=== PATIENT | male | born 1955 | race Caucasian/White ===

== ENCOUNTER → 2024-08-28 16:27 | Outpatient (REF) | payer MEDICARE, OTHER, SELFPAY | LOC: RCS 16:27 | PROVIDERS: ATTENDING PHYSICIAN Nurse Practitioner; FAMILY PHYSICIAN Family Medicine | DX: R00.1 Bradycardia, unspecified (principal) | CPT/HCPCS: 93225; 93226 ==

== ENCOUNTER → 2024-08-30 15:07 | Outpatient (REF) | payer MEDICARE, OTHER, SELFPAY | LOC: RCS 15:07 | PROVIDERS: ATTENDING PHYSICIAN Nurse Practitioner; FAMILY PHYSICIAN Family Medicine | DX: R00.1 Bradycardia, unspecified (principal) | CPT/HCPCS: 93306 ==

== ENCOUNTER 2024-08-31 10:06 | Day surgery (SDC) | payer MEDICARE, OTHER, SELFPAY ==
[2024-08-31] VITALS (17 sets, daily range): BP systolic 119–159; BP diastolic 60–80; BMI 26.6
--- NOTE | 2024-08-31 15:25 | PTCARENOTE ---
Pt transferred to chest xray via stretcher with court monitor and RN.
--- NOTE | 2024-08-31 15:33 | PTCARENOTE ---
Pt returned from xray via stretcher with cafeteria monitor and RN.
[2024-08-31] MEDS: TYLENOL 650 MG PO (17:08)
--- NOTE | 2024-08-31 17:22 | ITS.CL.PACE ---
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
Pacemaker Implant
Procedure Report:
Date of Procedure: August 31, 2023.
Procedure: Pacemaker Implantation. Left upper extremity venogram.
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 Chronic LBBB, CAD, and normal LVEF.
Performing physician: Acosta Acosta MD., [facility].
Implants:
Pulse Generator: Medtronic; Model# W1DR01; Serial# [id number].
RA Lead: Medtronic; Model# 5076-52cm; Serial# [id number].
RV Lead: Medtronic; Model# 3830-69cm; Serial# [id number].
Technique: A time out was performed. A 10 mL upper extremity venogram demonstrated patent left axillary, cephalic, and subclavian veins. The procedure site was identified. The patient was anesthetized by the anesthesia service. Preoperative
cefazolin was administered. The patient was prepped and draped in the usual fashion. Local anesthetic was applied to the left prepectoral subcutaneous tissue. A 3 inch incision was made along the left deltopectoral groove. Dissection was carried to
the fascia. The left cephalic vein was easily isolated and proximal and distal control with 2-0 Vicryl suture. Using a micropuncture needle to access the cephalic vein under direct visualization a wire was advanced into the central circulation. A 7
Fr introducer was placed to allow two 0.35 J wires to be advanced. The leads were introduced with hemostatic peel away introducer sheaths. The RV lead was placed using utilizing the [employer] His delivery catheter ([id number]) that was advanced to the
left bundle area as confirmed by fluoroscopy in the GIAN and BRAY projections. The lead tip was advanced. PVC morphology was reviewed. When a satisfactory location was identified (W pattern observed) the lead was screwed into position with serial
turns. Septal engagement was confirmed with gentle torque applied to the guide sheath. After each series of turns (2-3) unipolar sensed morphology and impedance, and paced morphology of V1 was analyzed. The lead was further advanced until
satisfactory morphology and electrical characteristics were confirmed. The RV lead was placed in the first location evaluated. The long guiding sheath was cut and removed from the RV without change in lead position, impedance, sensing, or capture.
The ventricular lead was secured to the pectoralis muscle and fascia with two 0-silk sutures. The atrial lead was placed in the right atrial appendage. 8 volt pacing from each lead did not capture the diaphragm. The atrial leads was secured to the
pectoralis muscle and fascia. A subcutaneous pocket was created with Bovie cautery. Hemostasis was excellent. The leads were appropriately attached to the device. The pocket was irrigated with antibiotic solution. The device and leads were placed in
the pocket. The incision was closed in three layers with absorbable suture. Steri-strips and a silver impregnated dressing were placed. Estimated blood loss was about 10-15 ml. There were no complications. Fluoroscopy: time 4.4 minutes and DAP 3.05
GyCM2. The device was then interrogated after skin closure.
Lead Analysis:
RA lead: P: 1.8 mV; Threshold: 0.75 V @ 0.4 ms; Impedance: 570 ohms.
RV lead (bipolar): R: 20 mV; Threshold: 0.5 V @ 0.4 ms; Impedance: 874 ohms.
RV lead (unipolar): R: over 7; Threshold: 0.5 V @ 0.4 ms; Impedance: over 600 ohms.
Paced QRS characteristics (unipolar and bipolar were similar: V1 has Qr morphology and measures 120 ms in duration, LVAT (stim to peak V5/V6) is approximately 80 ms, and R peak V1 to R peak V6 is 30 ms.
Final Programming: DDDR 50-130 bpm.
Conclusion: Uncomplicated Medtronic pacemaker implant. The pacing system is MRI conditional.
Recommendation: Routine post pacemaker care.
cc: Prashant Arellano MD; Adebayo Multani MD, and Pradip Silva DO ([facility]).
[2024-08-31] MEDS: ASPIR LOW (ENTERIC COATED) 81 MG PO (21:21)
[2024-08-31] MEDS: COZAAR 50 MG PO (21:21)
[2024-08-31] MEDS: ANCEF 5 IV (21:21)
[2024-08-31] MEDS: NEURONTIN 300 MG PO (21:22)
[2024-08-31] MEDS: LIPITOR 40 MG PO (21:23)
[2024-09-01 04:44] VITALS: BP 120/74
[2024-09-01] MEDS: ANCEF 5 IV (04:52)
[2024-09-01 05:21] LABS: Hematocrit 38.9 % (39.0-52.0); Hemoglobin 13.3 g/dL (13.0-18.0); Mean Corp Hgb Conc. 34.2 g/dL (33.0-37.0); Mean Corpuscular Hgb 31.4 pg (27.0-31.0); Mean Platelet Volume 9.8 fL (7.4-10.4); Platelet Count 165 10^3/uL (130-400); Red Blood Cell Count 4.23 10^6/uL (4.70-6.10); Red Cell Dist. Width 12.9 % (11.5-14.5); White Blood Cell Count 6.8 10^3/uL (4.8-10.8)
[2024-09-01 05:38] LABS: Blood Urea Nitrogen 18 mg/dl (9-20); Calcium 8.8 mg/dl (8.4-10.2); Carbon Dioxide 25 mmol/L (22-30); Chloride 103 mmol/L (98-107); Estimated Creatinine Clearance 99 ml/min; Glucose 96 mg/dl (70-99); Potassium 4.1 mmol/L (3.5-5.1); Sodium 137 mmol/L (135-145); eGFR > 60.00
[2024-09-01 07:13] VITALS: BP 123/68
[2024-09-01] MEDS: NEURONTIN 300 MG PO (09:23)
[2024-09-01] MEDS: TYLENOL 650 MG PO (09:23)
--- NOTE | 2024-09-01 09:54 | W.PN.UPDATE ---
Addendum entered and electronically signed by Acosta Acosta MD 09/01/24 13:59:
I saw and examined the patient.
The LANDSCAPE ARCHITECTURE TEACHER's note was reviewed and I agree with the note.
Comment: Site, CXR, EKG, tele all very good. All questions answered. Home today.
Original Note:
Update Note
Progress Note Update
Pt. s/p PPM for symptomatic bradycardia and second and third degree heart block. He offers no complaints. L pectoral incision dressing intact. No hematoma. Tele with occ AP /STICKER ON 61 bpm. CXR no pneumothorax. Pt. stable for d/c.
[2024-09-01 11:05] VITALS: BP 134/74
--- NOTE | 2024-09-01 11:30 | PTCARENOTE ---
Pt's IV line & telemetry pack D/C'd. D/C instructions discussed w/pt & pt's spouse. Pt left ambulating on his own with spouse providing transportation home.
--- NOTE | 2024-09-03 16:26 | CM ---
pt indep, lives with is in a 2 story home . he is prev indep. dc plan is home with no needs.
== END 2024-09-01 11:33 | disposition home or self-care (01) ==
LOC: CATH 10:06
PROVIDERS: Nurse Practitioner; ATTENDING PHYSICIAN Internal Medicine Cardiovascular Disease; FAMILY PHYSICIAN Family Medicine; OTHER PHYSICIAN Internal Medicine Cardiovascular Disease
DX: I44.2 Atrioventricular block, complete (principal); R00.1 Bradycardia, unspecified; I10 Essential (primary) hypertension; E78.5 Hyperlipidemia, unspecified; Z95.5 Presence of coronary angioplasty implant and graft; I25.10 Atherosclerotic heart disease of native coronary artery without angina pectoris; R42 Dizziness and giddiness
CPT/HCPCS: 33208; 71045; 80048; 85027; 93005; C1769; C1785; C1887; C1892; C1898; Q9967

== ENCOUNTER → 2025-06-19 12:06 | Outpatient (REF) | payer MEDICARE, OTHER, SELFPAY | LOC: HWRCS 12:06 | PROVIDERS: ATTENDING PHYSICIAN Internal Medicine Cardiovascular Disease; FAMILY PHYSICIAN Family Medicine | DX: R07.9 Chest pain, unspecified (principal); Z95.0 Presence of cardiac pacemaker; I44.2 Atrioventricular block, complete; I44.7 Left bundle-branch block, unspecified; I25.810 Atherosclerosis of coronary artery bypass graft(s) without angina pectoris | CPT/HCPCS: 36415; 78452; 84484; 93017; A9500; J2785 ==